=== PATIENT | male | born 1990 ===

== ENCOUNTER 2017-06-12 18:51 | Emergency (ER) | payer SELFPAY ==
[2017-06-12 19:39] VITALS: BP 118/80; PULSE 80; RESP 16; TEMP 98.5; O2SAT 98
--- NOTE | 2017-06-12 20:23 | ED PDOC ---
HPI: Skin/Bite Injury Time Seen by Provider: 06/12/17 19:49 Chief Complaint (Nursing): Abnormal Skin Integrity Chief Complaint (Provider): Swelling and pain to buttocks History Per: Patient History/Exam Limitations: no limitations Onset/Duration Of Symptoms: Days Current Symptoms Are (Timing): Still Present Additional History Per: Patient Additional Complaint(s): 27yo male presents to ER with complaints of swelling and pain to his midline buttock area for the past 4 days. Patient states he has been taking warm baths with no relief of symptoms. He reports similar presentation 5-6 years ago during which he had the cyst incised; reports during this instance, he had symptoms for 1 week with purulent discharge. Patient denies any discharge at present and also denies any fever, rashes. Patient denies taking any medications for his pain. No other medical complaints. Past Medical History Reviewed: Historical Data, Nursing Documentation, Vital Signs Vital Signs: Last Vital Signs Temp 98.5 F 06/12/17 19:35 Pulse 80 06/12/17 19:35 Resp 16 06/12/17 19:35 BP 118/80 06/12/17 19:35 Pulse Ox 98 06/12/17 20:35 - Medical History PMH: No Chronic Diseases - Surgical History Other surgeries: tibia surgery due to fracture - Family History Family History: States: Unknown Family Hx - Social History Current smoker - smoking cessation education provided: Yes Alcohol: None Drugs: Denies - Home Medications Home Medications: Ambulatory Orders Medication Instructions Recorded Clindamycin [Cleocin] 300 mg PO TID #21 cap 06/12/17 Ibuprofen [Motrin Tab] 600 mg PO Q8 PRN #60 tab 06/12/17 traMADol [Ultram] 50 mg PO TID PRN #15 tab 06/12/17 - Allergies Allergies/Adverse Reactions: Allergies Allergy/AdvReac Type Severity Reaction Status Date / Time No Known Allergies Allergy Verified 06/12/17 19:39 Review of Systems ROS Statement: Except As Marked, All Systems Reviewed And Found Negative (as per HPI) Constitutional: Negative for: Fever Skin: Positive for: Other (swelling and pain to midline buttock area). Negative for: Rash Physical Exam - Reviewed Nursing Documentation Reviewed: Yes Vital Signs Reviewed: Yes - Physical Exam Appears: Positive for: Non-toxic, No Acute Distress Back: Positive for: Other (2cm by 1cm area just right of midline gluteal fold with small, indurated and erythematous lesion. Mild tenderness and no palpable fluctuance noted. NO purulent discharge noted.) - ECG O2 Sat by Pulse Oximetry: 98 (RA) Pulse Ox Interpretation: Normal Medical Decision Making Medical Decision Making: Impression: Early pilonidal cyst Plan: -- Patient to be discharged home with antibiotics and instructions for conservative management of symptoms. Advised to return to ER in 48 hours or to follow up with surgical clinic. Patient agreeable with plan. Scribe Attestation: Documented by Aleah Haro acting as a scribe for Anamaria Collins MD. Provider Attestation: All medical record entries made by the Scribe were at my direction and personally dictated by me. I have reviewed the chart and agree that the record accurately reflects my personal performance of the history, physical exam, medical decision making, and the department course for this patient. I have also personally directed, reviewed, and agree with the discharge instructions and disposition. Disposition - Clinical Impression Clinical Impression: Pilonidal cyst without abscess Counseled Patient/Family Regarding: Diagnosis, Need For Followup, Rx Given - Disposition Referrals: [facility] [Outside] (CALL TOMORROW MORNING TO SETUP APPOINTMENT WITH THE [facility] (LET THEM KNOW YOU WERE SEEN IN THE ER AND THEY WILL GIVE YOU AN APPOINTMENT SOON POSSIBLE). YOU NEED TO BE SEEN AT [facility] TO GET A REFERRAL TO SURGERY CLINIC) Disposition: Routine/Home Disposition Time: 20:23 Condition: STABLE Additional Instructions: FOLLOW UP AT CLINIC OR RETURN TO ER IN 48 HOURS FOR REEVALUATION Prescriptions: Clindamycin [Cleocin] 300 mg PO TID #21 cap Ibuprofen [Motrin Tab] 600 mg PO Q8 PRN #60 tab PRN Reason: Pain, Moderate (4-7) traMADol [Ultram] 50 mg PO TID PRN #15 tab PRN Reason: severe pain only Instructions: Folliculitis (ED), Sitz Bath (GEN) Forms: [facility] ED School/Work Excuse
== END 2017-06-12 20:32 | disposition home or self-care (01) ==
LOC: H.ER 18:51
DX: L05.91 Pilonidal cyst without abscess (principal)